=== PATIENT | female | born 1955 | race Caucasian/White ===

== ENCOUNTER 2023-11-23 05:49 | Day surgery (SDC) | payer BC, MEDICARE ==
[2023-11-23] MEDS ORDERED: Midazolam 1 MG/ML 2 ML SDV IV ONE (05:50)
[2023-11-23] MEDS ORDERED: fentaNYL 100 MCG/2 ML SDV IV ONE (05:50)
[2023-11-23] MEDS ORDERED: Midazolam 1 MG/ML 2 ML SDV ONE (06:03)
[2023-11-23] MEDS ORDERED: fentaNYL 100 MCG/2 ML SDV ONE (06:04)
[2023-11-23] MEDS: Dextrose 5%-0.45% NaCl 1,000 ML IV SCH (06:27)
[2023-11-23] MEDS: fentaNYL 100 MCG/2 ML SDV IV ONE ×2 (07:01)
[2023-11-23] MEDS: Midazolam 1 MG/ML 2 ML SDV IV ONE ×2 (07:02→07:03)
== END 2023-11-23 08:55 | disposition home or self-care (01) ==
LOC: DL.ENDO 05:49
PROVIDERS: ATTEND Internal Medicine Gastroenterology
DX: R10.13 Epigastric pain (principal); K43.9 Ventral hernia without obstruction or gangrene; E78.00 Pure hypercholesterolemia, unspecified; M81.0 Age-related osteoporosis without current pathological fracture; Z79.899 Other long term (current) drug therapy
CPT/HCPCS: 87077; J2250; J3010; J7042

== ENCOUNTER 2024-06-18 16:02 | Emergency (ER) | payer BC, MEDICARE ==
[2024-06-18] MEDS: Lidocaine 1% 5 ML VIAL INJECT ONE (16:16)
== END 2024-06-18 16:44 | disposition home or self-care (01) ==
LOC: DL.ED 16:02
DX: S61.211A Laceration without foreign body of left index finger without damage to nail, initial encounter (principal); Z79.899 Other long term (current) drug therapy; Z88.5 Allergy status to narcotic agent; Z86.16 Personal history of COVID-19; Z90.49 Acquired absence of other specified parts of digestive tract; W26.0XXA Contact with knife, initial encounter
CPT/HCPCS: 12001; 99282; J3490